=== PATIENT | female | born 1995 | race Caucasian/White ===

== ENCOUNTER 2021-12-18 21:07 | Emergency (ER) | payer BC ==
[2021-12-18] MEDS ORDERED: Acetaminophen/HYDROcodone 325-5 MG Tab PO ONE ×2 (21:08→21:21)
[2021-12-18] MEDS ORDERED: Amoxicillin 500 MG Cap PO ONE (21:08)
[2021-12-18 21:22] VITALS: BP 139/81; PULSE 76
== END 2021-12-18 21:41 | disposition home or self-care (01) ==
LOC: FB.ED 21:07
DX: H66.91 Otitis media, unspecified, right ear (principal); H72.91 Unspecified perforation of tympanic membrane, right ear; J45.909 Unspecified asthma, uncomplicated; Z88.1 Allergy status to other antibiotic agents; Z91.040 Latex allergy status
CPT/HCPCS: 99282; A9270-GY